=== PATIENT | female | born 2000 | race Caucasian/White ===

== ENCOUNTER 2020-06-13 12:31 | Emergency (ER) | payer OTHER ==
[~2020-06-13] VITALS: Ht 162.6 cm; Wt 60.8 kg
[2020-06-13 13:06] VITALS: BP 120/76
[2020-06-13] MEDS ORDERED: CYCL5TAB14 PO (15:13)
== END 2020-06-13 15:26 | disposition home or self-care (01) ==
LOC: ER 12:32
DX: M54.2 Cervicalgia (principal); Z79.899 Other long term (current) drug therapy
CPT/HCPCS: 72040; 99283